=== PATIENT | male | born 1985 | race Caucasian/White ===

== ENCOUNTER 2018-04-07 11:23 | Emergency (ER) | payer OTHER ==
--- NOTE | 2018-04-07 13:01 | XRAY Report ---
Reason: fall Procedure Date: 04/07/2018 Accession Number: [id number] / [id number] Procedure: XR - Finger(s) LT CPT Code: FULL RESULT: EXAM: LEFT FIRST DIGIT RADIOGRAPHY EXAM DATE: 04/07/2018 12:52 PM. CLINICAL HISTORY: Fall, pain. COMPARISON: None. TECHNIQUE: 3 views. FINDINGS: Bones: Normal. No fracture or bone lesion. Joints: Normal. No subluxations. Soft Tissues: Unremarkable. IMPRESSION: Normal digit radiography. RADIA
--- NOTE | 2018-04-07 13:04 | ED Physician Documentation ---
PD HPI UPPER EXT INJURY - Stated complaint Stated Complaint: FELL ON LEFT HAND - Chief complaint Chief Complaint: Ext Problem - History obtained from History obtained from: Patient - History of Present Illness Location: Left, Finger (thumb) Type of injury: Fall Where injury occurred: Home Timing - onset: Today Timing - duration: Hours Timing - details: Abrupt onset, Still present Improved by: Rest, Ice, Immobilization Worsened by: Moving, Palpating Associated symptoms: Swelling, Discolored. No: Weakness, Numbness Contributing factors: No: Anticoagulated Similar symptoms before: Has not had sx before Recently seen: Not recently seen - Additonal information Additional information: 32-year-old male slipped and fell on the ice today landing on his outstretched left hand behind him. He complains of pain to the left thumb from the first flange distally. He denies any pain over the metacarpal on that side. He indicates he was not otherwise injured in the fall. Review of Systems Constitutional: denies: Fever Eyes: denies: Loss of vision, Decreased vision Ears: denies: Ear pain Nose: denies: Rhinorrhea / runny nose, Congestion Throat: denies: Sore throat Respiratory: denies: Cough GI: denies: Vomiting PD PAST MEDICAL HISTORY - Past Medical History Past Medical History: No - Past Surgical History Past Surgical History: No - Present Medications Home Medications: Ambulatory Orders Medication Instructions Recorded Confirmed EPINEPHrine [Epinephrine] 0.3 mg IJ 04/07/18 Hydrocodone/Acetaminophen 1 - 2 each PO Q6H PRN #14 tablet 04/07/18 [Hydrocodon-Acetaminophen 5-325] - Allergies Allergies/Adverse Reactions: Allergies Allergy/AdvReac Type Severity Reaction Status Date / Time bee pollen Allergy Anaphylaxis Verified 04/07/18 11:34 - Social History Does the pt smoke?: No Smoking Status: Never smoker Does the pt drink ETOH?: Yes Does the pt have substance abuse?: No - Immunizations Immunizations are current?: Yes - POLST Patient has POLST: No PD ED PE NORMAL - Vitals Vital signs reviewed: Yes (hypertensive) - General General: Alert and oriented X 3, No acute distress, Well developed/nourished - HEENT HEENT: Atraumatic, PERRL, EOMI - Respiratory Respiratory: No respiratory distress - Derm Derm: Normal color, Warm and dry, No rash - Extremities Extremities: No deformity, No edema, Other ( Exam of the lft hand shows tendernes to the proximal phlange on the left thumb and this extends to the DIP joint and there is restriction of ROM of the DIP joint. Distal n/v is intact. There is discoloration in a band like fashion over the area represented by the extensor tendon of the thumb and there is no tenderness to the anatomic snuffbox. ) - Neuro Neuro: Alert and oriented X 3, steel hanger 2-12 intact, No motor deficit, No sensory deficit, Normal speech Eye Opening: Spontaneous Motor: Obeys Commands Verbal: Oriented GCS Score: 15 - Psych Psych: Normal mood, Normal affect Results - Vitals Vitals: Vital Signs - 24 hr 04/07/18 11:30 Temperature 36.1 C L Heart Rate 83 Respiratory 16 Rate Blood Pressure 156/78 H O2 Saturation 98 Oxygen O2 Source Room air - Rads (name of study) thumb Radiology: Prelim report reviewed (Impression: Normal digit radiography.), EMP read indepedently, See rad report Procedures - Splint (location) thumb left Splint applied by: Tech Type of splint: Fiberglass, Thumb spica Other: Patient tolerated well, No complications, Neurovascular intact, Good alignment PD MEDICAL DECISION MAKING - ED course Complexity details: considered differential, d/w patient ED course: 32-year-old male with a fall onto his left hand has sprained his left thumb and he is placed into a thumb spica splint. Is instructed to wear the splint for 1- 2 weeks and to follow-up with his primary care doctor if he is not had resolution of his symptoms in that time.. Departure - Departure Disposition: 01 Home, Self Care Clinical Impression: Left thumb sprain Qualifiers: Encounter type: initial encounter Sprain of finger site: interphalangeal joint Qualified Code(s): S63.622A - Sprain of interphalangeal joint of left thumb, initial encounter Condition: Stable Instructions: ED Sprain Finger Follow-Up: [facility] [Provider Group] Prescriptions: Hydrocodone/Acetaminophen [Hydrocodon-Acetaminophen 5-325] 1 - 2 each PO Q6H PRN #14 tablet PRN Reason: pain
[2018-04-07 13:53] VITALS: BP 117/91
== END 2018-04-07 13:53 | disposition home or self-care (01) ==
LOC: ED 11:23 → EDBD 11:23 → ED 13:53
DX: S63.622A Sprain of interphalangeal joint of left thumb, initial encounter (principal); W00.0XXA Fall on same level due to ice and snow, initial encounter; Y92.007 Garden or yard of unspecified non-institutional (private) residence as the place of occurrence of the external cause
CPT/HCPCS: 29125; 73140; 99283

== ENCOUNTER 2020-04-16 17:37 | Emergency (ER) | payer OTHER ==
[2020-04-16] MEDS ORDERED: DEXAMETHASONE 10 MG/ML VIAL PO STA (18:36)
[2020-04-16] MEDS ORDERED: KETOROLAC 60 MG/2 ML VIAL IM STA (18:36)
--- NOTE | 2020-04-16 18:45 | ED Physician Documentation ---
History of Present Illness - Stated complaint Stated Complaint: neck & left arm px - Chief complaint Chief Complaint: Trauma Hd/Nk - History obtained from History obtained from: Patient - History of Present Illness Timing: How many weeks ago (1) Pain level max: 10 Pain level now: 10 - Additonal information Additional information: Patient is a 34-year-old male who presents to the emergency department with neck pain for the past week. Patient states that he awoke from sleep a week ago and it felt like his neck was spasming. States it felt like a neck spasm that is gradually worsened throughout the week. Now difficulty turning his head. Has occasional shooting pain down the left arm. Worse with movement. Nothing makes it better. Took Motrin once without relief. He states that he called the [facility] today and was referred here as they could not see him today. No trauma. No history of fall. No numbness or tingling. No fevers. No chills. No headache. No cough. Review of Systems Constitutional: denies: Fever, Chills Respiratory: denies: Cough GI: denies: Abdominal Pain, Nausea, Vomiting, Diarrhea Skin: denies: Rash Musculoskeletal: denies: Back pain, Extremity pain, Joint pain Neurologic: denies: Focal weakness, Numbness, Headache PD PAST MEDICAL HISTORY - Past Medical History Past Medical History: No - Past Surgical History Past Surgical History: Yes - Present Medications Home Medications: Ambulatory Orders Medication Instructions Recorded Confirmed EPINEPHrine [Epinephrine] 0.3 mg IJ ONCE PRN 04/07/18 Cyclobenzaprine [Flexeril] 10 mg PO TID PRN #20 tab 04/16/20 HYDROcod/ACETAM 5/325 [[place] 5/325] 1 - 2 ea PO Q6H PRN #14 tab 04/16/20 Ibuprofen [Motrin] 800 mg PO Q8H PRN #30 tab 04/16/20 - Allergies Allergies/Adverse Reactions: Allergies Allergy/AdvReac Type Severity Reaction Status Date / Time bee pollen Allergy Anaphylaxis Verified 04/16/20 17:46 - Social History Does the pt smoke?: No Smoking Status: Never smoker Does the pt drink ETOH?: Yes Does the pt have substance abuse?: No - Immunizations Immunizations are current?: Yes - POLST Patient has POLST: No PD ED PE NORMAL - Vitals Vital signs reviewed: Yes - General General: Alert and oriented X 3, No acute distress - HEENT HEENT: Atraumatic, PERRL, Moist mucous membranes - Neck Neck: No bony TTP, Other (paraspinal cervical neck spasm. L > R. limited ROM 2/2 pain.) - Cardiac Cardiac: RRR - Respiratory Respiratory: No respiratory distress, Clear bilaterally - Derm Derm: Warm and dry - Extremities Extremities: No deformity, No tenderness to palpate - Neuro Neuro: Alert and oriented X 3, comfort filler 2-12 intact, No motor deficit, No sensory deficit, Normal speech - Psych Psych: Normal mood, Normal affect Results - Vitals Vitals: Vital Signs - 24 hr 04/16/20 04/16/20 17:48 19:02 Temperature 37.2 C Heart Rate 97 86 Respiratory 19 16 Rate Blood Pressure 151/94 H 135/85 H O2 Saturation 100 95 Oxygen O2 Source Room air PD MEDICAL DECISION MAKING - ED course Complexity details: considered differential (No epidural abscess, no evidence of spinal stenosis. No evidence of cauda equina.), d/w patient ED course: 34-year-old male presents to the emergency department with what appears to be right neck. Gradually increasing spasm. We will place on pain medication and muscle relaxants for home. No evidence of meningitis. No evidence of the of skeletal trauma. No neurological deficits. Patient counseled regarding signs and symptoms for which I believe and urgent re-evaluation would be necessary. Patient with good understanding of and agreement to plan and is comfortable going home at this time This document was made in part using voice recognition software. While efforts are made to proofread this document, sound alike and grammatical errors may occur. Departure - Departure Disposition: 01 Home, Self Care Clinical Impression: Neck muscle spasm Condition: Good Instructions: ED Wry Neck Follow-Up: Armida Goel MD [Primary Care Provider] - Within 1 week Prescriptions: Cyclobenzaprine [Flexeril] 10 mg PO TID PRN #20 tab PRN Reason: Spasms Ibuprofen [Motrin] 800 mg PO Q8H PRN #30 tab PRN Reason: PAIN &/OR FEVER HYDROcod/ACETAM 5/325 [[place] 5/325] 1 - 2 ea PO Q6H PRN #14 tab PRN Reason: Pain Comments: You need to gently stretch your neck at home. This will help to relieve the spasming. The more that you hold your neck in one place, the worse this will get. Make sure that is gently stretched. Follow-up with your doctor for further care. Do not drink alcohol or drive while on narcotic pain medicine. Note that many narcotic pain relievers also contain tylenol/acetaminophen. Please ensure that your total dose of acetaminophen from all sources does not exceed 3 grams (3000mg) per day. You may constipated on this medication, take a stool softener such as "Colace" twice a day while you are on it. Also recommend a atke-nut-zdqiyvo laxative such as senna or MiraLAX any day that you do not have a bowel movement. If you received narcotic pain medication in the emergency department, do not drive or operate machinery for the next 24 hours. Discharge Date/Time: 04/16/20 19:02
[2020-04-16] MEDS ORDERED: CHERRY SYRUP 10 ML UDC PO ONE (18:52)
[2020-04-16 19:19] VITALS: BP 135/85
== END 2020-04-16 19:02 | disposition home or self-care (01) ==
LOC: ED 17:37
DX: M62.838 Other muscle spasm (principal)
CPT/HCPCS: 96372; 99283; 99284; A9270

== ENCOUNTER 2020-09-30 18:25 | Emergency (ER) | payer OTHER ==
[2020-09-30 19:19] LABS: HCT - HEMATOCRIT 43.1 % (42.0-52.0); HGB - HEMOGLOBIN 15.3 g/dL (14.0-18.0); MEAN CORPUSCULAR VOLUME 88.3 fL (80.0-94.0); RED BLOOD COUNT 4.88 10^6/uL (4.70-6.10); WHITE BLOOD COUNT 6.8 x10^3/uL (4.8-10.8)
[2020-09-30 19:20] LABS: BASOPHILS % (AUTO) 0.3 %; EOSINOPHILS # (AUTO) 0.4 10^3/uL (0.0-0.7); EOSINOPHILS % (AUTO) 6.4 %; LYMPHOCYTES # (AUTO) 1.7 10^3/uL (1.5-3.5); LYMPHOCYTES % (AUTO) 24.6 %; MEAN CORPUSCULAR HEMOGLOBIN 31.4 pg (27.0-31.0); MEAN CORPUSCULAR HGB CONC 35.5 g/dL (32.0-36.0); MEAN PLATELET VOLUME 10.5 fL (7.4-11.4); MONOCYTES # (AUTO) 0.4 10^3/uL (0.0-1.0); MONOCYTES % (AUTO) 6.3 %; NEUTROPHILS # (AUTO) 4.3 10^3/uL (1.5-6.6); NEUTROPHILS % (AUTO) 62.1 %; PLT - PLATELET COUNT 284 10^3/uL (130-450); RED CELL DISTRIBUTION WIDTH 11.2 % (12.0-15.0)
[2020-09-30 19:45] LABS: ALBUMIN 4.5 g/dL (3.2-5.5); ALBUMIN/GLOBULIN RATIO 1.5 (1.0-2.2); BILIRUBIN,TOTAL 0.5 mg/dL (0.2-1.0); CALCIUM 8.9 mg/dL (8.5-10.3); CREATININE 1.1 mg/dL (0.6-1.2); TOTAL PROTEIN 7.5 g/dL (6.7-8.2)
--- NOTE | 2020-09-30 20:35 | ED Physician Documentation ---
History of Present Illness - Stated complaint Stated Complaint: CP/SOA - Chief complaint Chief Complaint: Cardiac - History obtained from History obtained from: Patient - Additonal information Additional information: 34-year-old man, previously healthy, without family history of cardiac disease under 65, never smoker, presents with chest pain intermittent over the past 2 days. Yesterday he experienced dull pressure-like chest heaviness it was a 7 out of 10 occurring immediately after sex, lasting about 15 minutes accompanied by shortness of breath and lightheadedness, self resolving. He had a second episode at 1500 yesterday, 07/09, resolving again but then recurring on the drive over here. currently asymptomatic. denies fever, nausea, cough, leg swelling. Review of Systems Ten Systems: 10 systems reviewed and negative Constitutional: denies: Fever, Chills Cardiac: reports: Chest pain / pressure Respiratory: reports: Dyspnea GI: denies: Nausea PD PAST MEDICAL HISTORY - Past Medical History Past Medical History: Yes Cardiovascular: None Respiratory: None Neuro: None Endocrine/Autoimmune: None GI: None : None HEENT: None Psych: None Musculoskeletal: None Derm: None - Past Surgical History Past Surgical History: Yes - Present Medications Home Medications: Ambulatory Orders Medication Instructions Recorded Confirmed EPINEPHrine [Epinephrine] 0.3 mg IJ ONCE PRN 04/07/18 09/30/20 - Allergies Allergies/Adverse Reactions: Allergies Allergy/AdvReac Type Severity Reaction Status Date / Time bee venom protein (honey bee) Allergy Anaphylaxis Verified 09/30/20 18:42 - Social History Does the pt smoke?: No Smoking Status: Never smoker Does the pt drink ETOH?: Yes Does the pt have substance abuse?: No - Immunizations Immunizations are current?: Yes - POLST Patient has POLST: No PD ED PE NORMAL - Vitals Vital signs reviewed: Yes - General General: Alert and oriented X 3, No acute distress, Well developed/nourished - HEENT HEENT: Atraumatic, PERRL, EOMI - Neck Neck: Supple, no meningeal sign - Cardiac Cardiac: RRR - Respiratory Respiratory: No respiratory distress, Clear bilaterally - Abdomen Abdomen: Non tender, Non distended - Derm Derm: Normal color, Warm and dry - Extremities Extremities: No deformity, No edema - Neuro Neuro: Alert and oriented X 3 - Psych Psych: Normal mood, Normal affect Results - Vitals Vitals: Vital Signs - 24 hr 09/30/20 09/30/20 18:38 19:07 Temperature 36.6 C Heart Rate 85 81 Respiratory 16 19 Rate Blood Pressure 133/83 H 135/82 H O2 Saturation 97 98 Oxygen O2 Source Room air - EKG (time done) 1834 Rate: Rate (enter#) (75) Rhythm: NSR Intervals: Normal CT QRS: Normal Ischemia: Normal ST segments - Labs Labs: Laboratory Tests 09/30/20 09/30/20 09/30/20 19:00 19:00 19:00 WBC 6.8 RBC 4.88 Hgb 15.3 Hct 43.1 MCV 88.3 MCH 31.4 H MCHC 35.5 RDW 11.2 L Plt Count 284 MPV 10.5 Neut # (Auto) 4.3 Lymph # (Auto) 1.7 Woodruff # (Auto) 0.4 Eos # (Auto) 0.4 Baso # (Auto) 0.0 Absolute Nucleated RBC 0.00 Nucleated RBC % 0.0 D-Dimer < 200.0 L Sodium 140 Potassium 4.0 Chloride 101 Carbon Dioxide 30 Anion Gap 9.0 BUN 11 Creatinine 1.1 Estimated GFR (MDRD) 77 L Glucose 83 Calcium 8.9 Total Bilirubin 0.5 AST 17 ALT 13 Alkaline Phosphatase 57 Troponin I High Sens Total Protein 7.5 Albumin 4.5 Globulin 3.0 Albumin/Globulin Ratio 1.5 Lipase 36 09/30/20 19:00 WBC RBC Hgb Hct MCV MCH MCHC RDW Plt Count MPV Neut # (Auto) Lymph # (Auto) Woodruff # (Auto) Eos # (Auto) Baso # (Auto) Absolute Nucleated RBC Nucleated RBC % D-Dimer Sodium Potassium Chloride Carbon Dioxide Anion Gap BUN Creatinine Estimated GFR (MDRD) Glucose Calcium Total Bilirubin AST ALT Alkaline Phosphatase Troponin I High Sens < 2.3 L Total Protein Albumin Globulin Albumin/Globulin Ratio Lipase PD MEDICAL DECISION MAKING - ED course ED course: Presented with chest pain heart score 0. Return precautions given. [place] Departure - Departure Disposition: Home, Self Care Clinical Impression: Chest pain Condition: Good Instructions: ED Chest Pain NonCardiac Comments: You were seen in the emergency department for chest pain and had normal vital signs, EKG, blood work, and chest x-ray. The radiologist interpreted the chest x-ray is normal as well as the emergency doctor. Please return to the emergency department if you have any new or worsening symptoms or other concerns. Follow-up with your primary doctor. Forms: Activity restrictions
[2020-09-30 20:56] VITALS: BP 121/85
--- NOTE | 2020-10-04 15:06 | XRAY Report ---
PROCEDURE: CHEST 1 View INDICATIONS: chest pain TECHNIQUE: Single AP portable view of the chest. COMPARISON: None. FINDINGS: The lungs are clear. No pleural effusion or pneumothorax. The cardiomediastinal silhouette is within normal limits. No significant osseous abnormality is seen. IMPRESSION: No acute cardiopulmonary abnormality. Reviewed by: Benton Elkins MD on 09/30/2020 7:47 PM PDT Approved by: Benton Elkins MD on 09/30/2020 7:47 PM PDT Station ID: [id number]
== END 2020-09-30 21:00 | disposition home or self-care (01) ==
LOC: ED 18:25
DX: R07.9 Chest pain, unspecified (principal)
CPT/HCPCS: 36415; 80053; 83690; 84484; 85025; 85379; 93005; 99284

== ENCOUNTER 2021-01-09 09:28 | Outpatient (CLI) | payer OTHER ==
[2021-01-09 10:31] VITALS: BP 122/90
--- NOTE | 2021-01-09 10:31 | SLEEP CARE CONSULTATION ---
Information from patient questionnaire entered by Victoria Bui MA. I have reviewed and concur with the information entered by Victoria Bui MA. This document represents the service I personally performed and the decisions made by me, Anali Castro ARNP. History of Present Illness Service Date and Time: 01/09/2021 0928 Reason for Visit: New patient Chief Complaint: reports: Insomnia, Unrefreshed sleep, Snoring, Observed pauses in breathing, Fatigue, Frequent awakenings at night Date of Onset: 10 plus years Usual bedtime: 10 pm Time it takes to fall asleep: 2 - 3 hours Snores at night: Yes Observed to quit breathing while asleep: Yes Sleeps alone due to snoring: No Number of times waking at night: 2-3 a night, less with sleep aid; once awake he cannot go back to sleep Reasons for waking at night: reports: Snoring, Gasping for air Toss, Turn, or Twitch while sleeping: Yes Recalls having dreams: No Usually gets out of bed at: 6 AM Feels refreshed in the morning: No Morning headache: Yes (3-4 times a week, last a few hours) Sleepy or fatigued during the day: Yes Ever fallen asleep while driving: Yes (drowsy driving, no accidents) Takes day naps: Yes (4 times a week, 2 hours at most) Dreams during day naps: No Prior sleep studies: No Additional HPI information: I had the pleasure of seeing [place] today regarding the possibility of him having a sleep disorder. His current complaints are fatigue, frequent night awakenings, insomnia, observed pauses in breathing, snoring and unrefreshed sleep. 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 He went to behavioral health and they gave him 2 weeks of Ambien to reset his sleep schedule. He would fall asleep but then be up about 3 hours later. He has been told that he snores loudly by friends. He went to his doctor 2 years ago with a repeat of Ambien for 2 weeks to try to get sleep. He can take melatonin too and will still wake up a few hours after falling asleep. He had his record him sleeping. He was snoring and then had a pause of breathing with a gasp of air to start breathing. His told him that he has been doing this for a long time. He has difficulty with drowsy driving but no accidents. - Parasomnia Symptoms Ever been unable to move upon waking from sleep: No Walks in sleep: No Talks in sleep: Yes (mumbles) Ever acted out dreams in sleep: No Ever felt weak in the knees when startled or emotional: Yes (has not fallen to ground) Bothered by creepy, crawly, restless sensations in legs: Yes (daily in left leg, any time a day; not bothering sleep) Problems with memory or concentration: Yes (both, concentration worse) Subjective Initial [place] Sleepiness Scale score: 19 (2020) Social History The patient's occupation is a AM. Patient is and lives in [place]. Have you smoked in the past 12 months: No Alcohol use: No Caffeine use: Yes Caffeine amount and frequency: 1 per week or less Family History Family history of sleep disordered breathing: No Family Hx Sleep Apnea: Mother: Snoring, Father: Snoring Allergies and Home Medications Known drug allergies: No Drug allergies reviewed: Yes (NKDA) Home medication list reviewed: Yes (no daily medications or supplements) Review of Systems Cardiovascular: denies: high blood pressure Respiratory: reports: shortness of breath Gastrointestinal: reports: heartburn Neurological: reports: headaches Psychiatric: reports: anxiety Ear/Nose/Throat: reports: injury to nose (fracture 2008), tonsillectomy, wisdom teeth removed Musculoskeletal: reports: joint pain, neck pain, back pain, joint swelling Immunologic: reports: itching, allergies to food or environment (bee venom) Physical Exam Vital signs obtained and entered by: Ramya Cote CMA AAMA Blood Pressure: 122/90 (left) Cuff size: wrist Heart Rate: 62 O2 Saturation: 62 (with mask) Height: 5 ft 6 in Weight: 179 lb (pt on diet started exercise plan) Body Mass Index: 28.8 BMI Classification: Overweight Neck circumference: 16.25 (inches) Mouth and throat: narrow oropharynx Soft palate: long Hard palate: arched Uvula: normal Uvula visualization: 50% Mallampati Class II Tongue: enlarged in size with teeth acevedo on lateral edges Tonsils: absent bilaterally Neck: normal w/o lymphadenopathy or thyromegaly Heart: regular rate and rhythm Lungs: clear bilaterally Impression and Plan 1. Suspected Obstructive Sleep Apnea-Hypopnea Syndrome, as suggested by a history of loud and irregular snoring, observed cessation of breath while asleep, gasping or choking in sleep, morning headache, frequent awakening during the night, unrefreshed sleep, and cognitive impairment. Narrow oropharynx and obesity are common predisposing factors for obstructive sleep apnea-hypopnea syndrome. I recommend proceeding to polysomnography to confirm the diagnosis and to assess severity. If the patient has significant sleep disordered breathing, a manual CPAP titration study will also be performed to find the optimal treatment pressure. I informed the patient of what the sleep studies involve and after some discussion, obtained agreement to proceed. The pathophysiology of obstructive sleep apnea-hypopnea syndrome was discussed with the patient and health risks of cardiovascular and cerebrovascular disease if not treated. Risks of drowsy driving discussed in detail and patient advised to avoid long distance driving and to mandrel puller at the first sign of drowsiness. Patient agreed to plan. * Schedule polysomnography +- manual CPAP titration study and return in 1-2 weeks after the study to discuss result and initiate therapy. * Avoid long distance driving or driving when feeling sleepy. * Avoid alcohol, sedative and muscle relaxant around bedtime. * Attempt to lose weight. * Review instructions provided by trained office staff on how to prepare for the sleep study. * Return for follow-up after sleep study completed. Counseling Topics: Weight loss health impact Visit Type: In Office Time Spent with Patient (minutes): 30 Provider Statement: I spent 100% of the Face to Face Visit with the patient with greater than 50% spent counseling the patient and coordination of care.
== END 2021-01-09 09:29 | disposition home or self-care (01) ==
LOC: SC 09:28
PROVIDERS: ATTEND Nurse Practitioner Family
DX: R06.83 Snoring (principal); R06.81 Apnea, not elsewhere classified; R51.9 Headache, unspecified; G47.8 Other sleep disorders; R41.89 Other symptoms and signs involving cognitive functions and awareness
CPT/HCPCS: 99203; 99212

== ENCOUNTER 2021-01-22 13:52 | Outpatient (CLI) | payer OTHER | END 2021-01-22 13:53 | disposition home or self-care (01) | LOC: SC 13:52 | PROVIDERS: ATTEND Nurse Practitioner Family | DX: G47.33 Obstructive sleep apnea (adult) (pediatric) (principal); R09.02 Hypoxemia | CPT/HCPCS: 95806 ==

== ENCOUNTER 2021-02-08 11:54 | Outpatient (CLI) | payer OTHER ==
[2021-02-08 12:31] VITALS: BP 135/98
--- NOTE | 2021-02-08 12:31 | SLEEP CARE CONSULTATION ---
Information from patient questionnaire entered by Victoria Bui MA. I have reviewed and concur with the information entered by Victoria Bui MA. This document represents the service I personally performed and the decisions made by , Anali Castro ARNP. History of Present Illness Service Date and Time: 02/08/2021 1154 Initial [place] Sleepiness Scale score: 19 (2020) Current [place] Sleepiness Scale score: 17 (2020) Additional HPI information: [place] returns for follow up and results of the recently performed home sleep study. I explained the pathophysiology behind obstructive sleep apnea. We then spent quite a bit of time discussing different treatment options. For mild obstructive sleep apnea, surgery and oral appliance are alternatives to nasal CPAP therapy but in moderate or severe cases, nasal CPAP is the most effective and reliable treatment. I reviewed the impact of weight changes on sleep apnea and strongly recommended losing weight. After some discussion, the patient opted to go with the nasal CPAP therapy. Nasal autoCPAP set at 4-15 cmH20 will be ordered with rationale explained. A manual titration study will be ordered if unable to find optimal pressure with office adjustments. I explained how CPAP machine works and shown an example [employer] [id number] and what to expect when using the machine. Using CPAP every night in order to get used to it was emphasized. Patient advised to put CPAP mask on before getting into bed so as not to fall asleep without CPAP. To assist acclimation to CPAP use, it could also be used for a short time during day while reading or watching TV. The patient was instructed to call the CPAP supplier to discuss any mechanical problem that may occur. If the mask given is uncomfortable or is difficult to keep on through the night even with adjustment, contact the CPAP supplier as many will replace with another mask style if notified before 30 days. If snoring or perceives is not getting enough air or too much air from the machine, notify this office. [facility] patient education PAP tips reviewed and given to patient. Patient does not drink alcohol. Patient was cautioned about risks of drowsy driving until sleepiness symptoms resolve. Sleep Study - Results Prior sleep studies: No Polysomnography/Home Sleep Study results: Physician Impression: The quality of the study is good. The length of the study is not optimal (< 240 minutes). Please also see the tabulated and graphic data. 1. Obstructive Sleep Apnea-Hypopnea (ICD-10 G47.33), mild, with an AHI of 10.5/hr and girish SaO2 of 88%. During the study, the patient had 5 apneas (5 obstructive, 0 central, 0 mixed) and 22 hypopneas. The longest episode lasted 97.0 seconds. The patient only slept supine during this study (supine AHI was 10.5 and non-supine, 0.00). 2. Hypoxemia (ICD-10 R09.02), minimal, with the lowest oxygen saturation of 88 % and 1.7 minutes with SaO2 under 90%. Baseline oxygen saturation was normal (Average oxygen saturation was 93%). Allergies and Home Medications Home medication list reviewed: Yes (no changes) Review of Systems Review of systems same as previous: Yes (no changes) Physical Exam Vital signs obtained and entered by: ERIC CARVAJAL Blood Pressure: 135/98 (left retake on right arm 132/98) Heart Rate: 80 O2 Saturation: 98 (with mask) Height: 5 ft 6 in Weight: 165 lb (with clothes) Body Mass Index: 26.6 BMI Classification: Overweight Impression and Plan 1. Obstructive Sleep Apnea-Hypopnea Syndrome, mild, with lowest oxygen saturation of 88%. Obviously this is the cause of the patients symptoms of unrefreshed sleep, and excessive daytime sleepiness. Positive pressure therapy could benefit his overall health and reduce risks for cardiovascular and cerebrovascular adverse events. As mentioned above, the patient will be started on nasal autoCPAP therapy with pressure set at 4-15 cmH2O. A manual titration study will be completed if unable to find optimal treatment pressure with office adjustments. Compliance guidelines also reviewed. A copy of compliance guidelines will be given for reference at check out. * Nasal auto CPAP therapy, pressure at 4-15 cm H2O. * Attempt to lose weight. * Avoid alcohol consumption near bedtime. * Avoid supine sleep until using CPAP. * The patient is again cautioned about driving until sleepiness completely resolves. * Return one month after CPAP obtained. I will assess response to therapy and compliance at that time. Counseling Topics: Weight loss health impact Visit Type: In Office Time Spent with Patient (minutes): 20 Provider Statement: I spent 100% of the Face to Face Visit with the patient with greater than 50% spent counseling the patient and coordination of care.
== END 2021-02-08 11:55 | disposition home or self-care (01) ==
LOC: SC 11:54
PROVIDERS: ATTEND Nurse Practitioner Family
DX: G47.33 Obstructive sleep apnea (adult) (pediatric) (principal)
CPT/HCPCS: 99212; 99213